=== PATIENT | male | born 1990 | race American Indian/Alaskan Native ===

== ENCOUNTER 2017-03-07 01:21 | Emergency (ER) | payer BC ==
[2017-03-07 02:14] VITALS: BMI 22.4
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
[2017-03-07 05:22] LABS: BASO # 0.01 [, K/mm3] (0.0-2.0); BASO % 0.2 % (0.0-3.0); GRAN # 3.25 (1.4-6.5); GRAN % 70.3 % (50.0-68.0); LYMPH # 1.1 (1.2-3.4); LYMPH % 24.5 % (22.0-35.0); MEAN CELL VOLUME 85.8 fl (80.0-105.0); MEAN CORPUSCULAR HEMOGLOBIN 28.5 pg (25.0-35.0); MEAN CORPUSCULAR HGB CONC 33.2 g/dl (31.0-37.0); MEAN PLATELET VOLUME 9.6 fl (7.0-11.0); MONO # 0.2 (0.1-0.6); RBC 4.92 [, 10^6/uL] (3.5-6.1); RED CELL DISTRIBUTION WIDTH 14.1 % (11.5-14.5); WHITE BLOOD COUNT 4.6 [, 10^3/ul] (4.5-11.0)
[2017-03-07 05:23] LABS: ALB/GLOB RATIO 1.3 (1.1-1.8); ALBUMIN 4.5 g/dL (3.0-4.8); ALT/SGPT 29 U/L (7-56); AST/SGOT 36 U/L (17-59); BLOOD UREA NITROGEN 9 mg/dL (7-21); CALCIUM 10.1 mg/dL (8.4-10.5); GFR AFRICAN-AMERICAN > 60; GFR NON-AFRICAN AMERICAN > 60
[2017-03-07 05:30] LABS: ACETAMINOPHEN < 10.0 ug/ml (10.0-20.0); SALICYLATE < 1 mg/dL (2.0-20.0)
[2017-03-07 06:19] LABS: BARBITURATES, UR NEGATIVE (NEGATIVE); BENZODIAZEPINES, UR NEGATIVE (NEGATIVE); OPIATES, UR NEGATIVE (NEGATIVE); PHENCYCLIDINE, UR NEGATIVE (NEGATIVE)
[2017-03-07 06:45] LABS: URINE BILIRUBIN NEGATIVE (NEGATIVE); URINE BLOOD NEGATIVE (NEGATIVE); URINE GLUCOSE (UA) NEGATIVE (NEGATIVE); URINE LEUKOCYTE ESTERASE NEGATIVE Leu/uL (NEGATIVE); URINE NITRATE NEGATIVE (NEGATIVE); URINE PROTEIN NEGATIVE mg/dL (<30 mg/dL); URINE UROBILINOGEN 0.2 E.U./dL (<1 E.U./dL)
[2017-03-07 06:53] LABS: URINE APPEARANCE CLEAR (CLEAR); URINE COLOR STRAW (YELLOW)
[2017-03-07 07:57] VITALS: RESP 18
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
[2017-03-07 09:08] VITALS: BP 118/79; PULSE 78; TEMP 98.6; O2SAT 98
--- NOTE | 2017-03-07 10:32 | CARD ---
APPROVED REPORT EKG Measurement Heart [id number] <Conclusion> Normal sinus rhythm LVH by voltage RVCD
== END 2017-03-07 09:09 | disposition home or self-care (01) ==
LOC: ED 01:21
DX: M54.2 Cervicalgia (principal)
CPT/HCPCS: 80053; 81003; 85025; 90791; 93005; 99285; G0480